=== PATIENT | male | born 1995 | race Caucasian/White ===

== ENCOUNTER 2019-11-07 04:49 | Emergency (ER) | payer SELFPAY ==
[~2019-11-07] VITALS: Ht 172.7 cm; Wt 65.8 kg
[2019-11-07 04:49] VITALS: BP_SYST 142
[2019-11-07 05:15] VITALS: BP_SYST 128
== END 2019-11-07 05:15 ==
LOC: SED 04:49
DX: F10.129 Alcohol abuse with intoxication, unspecified (principal); Y90.9 Presence of alcohol in blood, level not specified; V47.5XXA Car driver injured in collision with fixed or stationary object in traffic accident, initial encounter; Y93.89 Activity, other specified; Y92.89 Other specified places as the place of occurrence of the external cause; Y99.8 Other external cause status
CPT/HCPCS: 99283